=== PATIENT | male | born 1945 | race Caucasian/White ===

== ENCOUNTER 2021-05-23 14:14 | Emergency (ER) | payer OTHER ==
[2021-05-23 20:26] LABS: BASOPHIL 0.8 % (0-2); EOSINOPHIL 2.1 % (0-7); HCT 45.4 % (42.0-52.0); HGB 16.1 g/dl (13.2-18.0); LYMPHOCYTE 20.3 % (15-48); MCH 33.4 pg (25.0-31.0); MCHC 35.5 g/dL (32.0-36.0); MCV 94.2 fL (78.0-100.0); MPV 10.7 fL (6.0-9.5); NEUTROPHIL 69.9 % (41-80); NRBC 0; PLT 264 K/uL (150-400); RBC 4.82 M/uL (4.70-6.00); RDW 12.9 % (11.5-14.0); WBC 10.5 K/uL (4.0-10.5)
[2021-05-23 20:39] LABS: ALBUMIN 3.6 g/dL (3.4-5.0); BILIRUBIN - TOTAL 0.8 mg/dL (0.2-1.0); BUN/CREAT RATIO (CALC) 20.7 RATIO; C-REACTIVE PROTEIN 0.2 mg/dL (<=0.90); CREATININE 0.82 mg/dL (0.67-1.17); GLOBULIN (CALCULATION) 3.5 g/dL; POTASSIUM 4.1 mmol/L (3.5-5.1); TOTAL PROTEIN 7.1 g/dL (6.4-8.2)
[2021-05-23 20:42] LABS: BILIRUBIN NEGATIVE (NEGATIVE); BLOOD NEGATIVE Ery/uL (NEGATIVE); CLARITY CLEAR (CLEAR); COLOR YELLOW (YELLOW); GLUCOSE (U) NORMAL (NORMAL); LEUKOCYTES NEGATIVE Leu/uL (NEGATIVE); NITRITE NEGATIVE (NEGATIVE); PROTEIN NEGATIVE (NEGATIVE); SPECIFIC GRAVITY 1.025 (1.001-1.030)
== END 2021-05-23 22:25 | disposition home or self-care (01) ==
LOC: FER 14:14 → EDBD 14:14 → FER 22:20
PROVIDERS: Internal Medicine
DX: R53.81 Other malaise (principal); R53.83 Other fatigue; I10 Essential (primary) hypertension; J44.9 Chronic obstructive pulmonary disease, unspecified; F17.210 Nicotine dependence, cigarettes, uncomplicated; Z79.899 Other long term (current) drug therapy; Z20.822 Contact with and (suspected) exposure to COVID-19
CPT/HCPCS: 36415; 80053; 81003; 83690; 85025; 86140; 93005; U0002

== ENCOUNTER 2022-04-21 15:28 | Emergency (ER) | payer OTHER ==
[2022-04-21] MEDS ORDERED: PREDNISONE 20MG20 MG PO (20:29)
[2022-04-21] MEDS ORDERED: CEFDINIR300 MG PO (20:29)
== END 2022-04-21 20:37 | disposition home or self-care (01) ==
LOC: FER 15:28
DX: K04.7 Periapical abscess without sinus (principal); F17.210 Nicotine dependence, cigarettes, uncomplicated
CPT/HCPCS: 96372; J0696; J1100